=== PATIENT | male | born 1955 | race Caucasian/White ===

== ENCOUNTER 2023-07-02 09:56 | Outpatient (CLI) | payer MEDICARE ==
[2023-07-02] MEDS ORDERED: Iopamidol 300 61% 100 ML VIAL FS ONE (15:10)
== END 2023-07-02 09:57 | disposition home or self-care (01) ==
LOC: CSHCT 09:56
PROVIDERS: ATTEND Nurse Practitioner Gerontology
DX: R93.89 Abnormal findings on diagnostic imaging of other specified body structures (principal)
CPT/HCPCS: 71260; 82565